=== PATIENT | female | born 1940 | race Caucasian/White ===

== ENCOUNTER 2020-07-29 21:06 | Emergency (ER) | payer MEDICARE, OTHER ==
[~2020-07-29 21:06] MED LIST: MACRODANTIN100 MG PO; ZITHROMAX500 MG PO; ZOFRAN 4 MG TAB4 MG PO
== END 2020-07-29 22:29 | disposition left against medical advice (07) ==
LOC: ER1 21:06
DX: Z53.21 Procedure and treatment not carried out due to patient leaving prior to being seen by health care provider (principal)

== ENCOUNTER → 2020-11-25 | Outpatient (CLI) | payer MEDICARE, OTHER | LOC: LAB 11:25 | PROVIDERS: Internal Medicine Cardiovascular Disease | DX: R60.9 Edema, unspecified (principal) | CPT/HCPCS: 36415; 80048 ==